=== PATIENT | female | born 1945 | race Caucasian/White ===

== ENCOUNTER 2017-03-03 09:47 | Outpatient (CLI) | payer MEDICARE, OTHER ==
--- NOTE | 2017-03-03 11:44 | ULT ---
RIGHT UPPER QUADRANT ULTRASOUND: DATE: 03/03/17. HISTORY: Nausea before and after eating. Shortness of breath. History of prior cholecystectomy. FINDINGS: The gallbladder is not visualized consistent with the patient's history of prior cholecystectomy. The visualized portions of the IVC, abdominal aorta, and right kidney demonstrate a normal sonograph ic appearance. The right kidney measures 9.7 cm in length. The liver demonstrates increased echogenicity compared to the adjacent right kidney suggesting fatty infiltration. The pancreas is obscured by bowel gas. The common duct measures 0.4 cm in diameter which is within normal limits for postcholecystectomy ch anges. IMPRESSION: 1. Fatty infiltration of the liver. 2. Cholecystectomy. POS: JOHN
== END 2017-03-03 09:48 | disposition home or self-care (01) ==
LOC: MADULT 09:47
PROVIDERS: ATTEND Internal Medicine Gastroenterology
DX: K76.9 Liver disease, unspecified (principal); R19.7 Diarrhea, unspecified; K76.0 Fatty (change of) liver, not elsewhere classified; Z90.49 Acquired absence of other specified parts of digestive tract
CPT/HCPCS: 76705